=== PATIENT | male | born 1945 | race Caucasian/White ===

== ENCOUNTER 2025-02-22 10:16 | Outpatient (CLI) | payer MEDICARE, SELFPAY ==
[2025-02-22 14:03] LABS: Hematocrit 47.4 % (42.0-52.0); Hemoglobin 15.5 g/dL (14.0-18.0); Immature Granulocyte Percent A 0.2 % (0-0.5); Immature Platelet Fraction Pct 4.2 % (0.9-11.2); Lymphocytes Absolute Auto 2.02 K/mm3 (0.9-3.2); Mean Corpuscular HGB Conc 32.7 g/dl (32-36); Mean Corpuscular Hemoglobin 30.2 pg (26-34); Mean Corpuscular Volume 92.2 fl (80-100); Nucleated Red Blood Cells Absolute Auto 0.000 K/mm3 (0.0-0.012); Nucleated Red Blood Cells Perc 0.0 % (0.0-0.2); Platelet Count Result 135 k/mm3 (150-375); Red Blood Count 5.14 M/mm3 (4.6-6.20); White Blood Count 5.7 K/mm3 (4.5-10.0)
[2025-02-22 14:24] LABS: Free T3 3.31 pg/mL (2.34-5.61); Free T4 Free Thyroxine 1.15 ng/dL (0.78-2.19)
[2025-02-22 14:32] LABS: Syphilis IgG/IgM Antibody Non-Reactive (Nonreactive)
[2025-02-22 15:53] LABS: Alanine Aminotransferase 24 U/L (6-50); Albumin Level 4.1 g/dL (3.5-5.1); Alkaline Phosphatase 65 U/L (38-126); Anion Gap 8 mmol/L (4-12); Aspartate Amino Transferase 45 U/L (17-59); Bilirubin,Total 1.2 mg/dL (0.2-1.3); Blood Urea Nitrogen 13 mg/dL (9-20); Calcium 8.9 mg/dL (8.4-10.2); Carbon Dioxide 24 mmol/L (22-30); Chloride 107 mmol/L (98-107); Cholesterol 125 mg/dL (0-200); Estimated Glomerular Filt Rate > 60; Glucose 82 mg/dL (65-110); HDL Direct 33 mg/dL; Potassium 3.7 mmol/L (3.4-5.0); Sodium 139 mmol/L (137-145); Total Protein 6.4 g/dL (6.3-8.2); Triglycerides 142 mg/dL (<150)
[2025-02-22 16:26] LABS: Thyroid Stimulating Hormone 2.390 uIU/mL (0.465-4.680)
[2025-02-22 17:02] LABS: Vitamin B12 427.0 pg/mL (239-931)
--- OUTSIDE RECORDS SUMMARY | 2025-02-23 10:05 | XMS_ITS | Encounter Summary ---
Author Organization [facility] Address [address] [place] [address] Care Team Providers Care Mold Presser Name Role Phone Russell Le MD Primary Care Provider Encounter Details Date Type Department Care Team (Late st Contact Info) Description 05/27/2013 Ancillary Orders [facility] CT Scan [address] 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
--- OUTSIDE RECORDS SUMMARY | 2025-02-23 10:05 | XMS_ITS | Clinical Summary ---
Author Organization [facility] Address [address] [place] [address] Care Team Providers Care Proofing Machine Operator Name Role Phone Russell Le MD Primary Care Provider [phone] Allergies No known active allergies Medications pravastatin (PRAVACHOL) 40 mg tablet Take 1 tablet by mouth once daily 90 Tablet 3 0 Active lisinopriL (PRINIVIL) 10 mg tablet Take 1 tablet by mouth once daily 90 Tablet 3 0 Active donepeziL (ARICEPT) 10 mg tablet Take 2 Tablets (20 mg) by mouth daily at bedtime. 60 Tablet 11 0 Active Lumigan 0.01 % solution INSTILL 1 DROP INTO EACH EYE ONCE DAILY AT BEDTIME 5 mL 0 Active timoloL maleate (TIMOPTIC) 0.5% solution Administer 1 Drop in both eyes daily in the morning. 10 mL 3 1 Active Active Problems Patient Care Coordination No te Formatting of this note migh t be different from the original. Protocol: [id number], NCT# 39134565. 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 Contact Dr. Clementine Eric at [phone]. Completed induction therapy Bendamustine + Rituximab then 24 months of Rituximab on 04/25/2014. 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 05/17/2018 Thoracic aortic aneurysm without rupture 017 Sensation of pressure, behind eye 11/18/2016 Cognitive change 07/17/2016 Hyperlipemia 08/21/2014 Essential hypertension 05/04/2014 Follicular lymphoma 12/26/2011 Splenomegaly 11/28/2011 Glaucoma suspect 04/03/2009 Resolved Problems Problem Noted Date Diagnosed Date Resolved Date Acquired mechanical ptosis of both eyelids 10/25/2018 01/06/2019 Visual field defects 10/25/2018 019 Anemia, chronic disease 08/18/201705/21 History of lymphoma 12/26/2016 06/08/19 19 Mood disorder 11/18/2016 12/26/2016 CKD (chronic kidney disease) stage 3, GFR 30-59 ml/min 02/11/2016 05/10/2019 Iron deficiency anemia, unspecified 07/06/2012 06/08/2018 SOB (shortness of breath) 06/17/2012 Examination of participant in clinical trial 2 05/04/2014 Immunizations Immunization Administration Dates Next Due (INFANRIX)(6 WKS-6 YRS) DIPT HERIA, TETANUS TOXOIDS, AND ACCELLULAR PERTUSSIS VACCINE (DTAP), 0.5 ML IM 12/29/2007 (PREVNAR 13)(6 WKS UP) PNEUM OCOCCAL CONJUGATE (PCV13) 0.5 ML, IM 08/06/2015 INFLUENZA VACCINE HIGH DOSE QUADRIVALENT 65 YR UP PF IM 01/26/2020 Influenza Seasonal Unspecifi ed Formulation IM 01/26/2018,12/19/2013 Influenza Vaccine High Dose 65+ Yrs IM 1 04/26/2018,01/26/2018,03/26/2017,03/08 PNEUMOVAX (PPSV23) pneumococ anjana polysaccharide 23-valent Vaccine 04/20/2011 Family History Medical History Relation Name Comments Healthy Daughter COPD Father Glaucoma Maternal Grandmother Colon Cancer Mother Healthy Son Relation Name Status Comments Daughter Alive Father Maternal Grandmother Mother Son Alive Social History Tobacco Use Types Packs/Day Years Used Date Smoking Tobacco: Never Smokeless Tobacco: Never Tobacco Cessation:Counseling Given: Yes Alcohol Use Standard Drinks/Week Comments Yes 1 (1 standard drink = 0.6 oz pur e alcohol) ''seldom'' Sex and Gender Information Value Date Recorded Sex Assigned at Not on file 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 Gender Identity Not on file Sexual Orientation Not on file Occupation Industry Job Start Date Job End Date Not on file Not on file Not on file Not on file Last Filed Vital Signs Vital Sign Reading Time Taken Comments Blood Pressure 124/68 09/19/2020 1:41 PM CDT Pulse 61 09/19/2020 1:41 PM CDT Temperature 36.2 C (97.2 F) 06/26/2020 12:48 PM RN MATERNAL CHILD Respiratory Rate 20 09/19/2020 1:41 PM CDT Oxygen Saturation 97% 09/19/2020 1:41 PM CDT Inhaled Oxygen Concentration - - Weight 90.7 kg (200 lb) 09/19/2020 1:41 PM CDT Height 172.7 cm (5' 8) 09/19/2020 1:41 PM CDT Body Mass Index 30.41 09/19/2020 1:41 PM CDT Plan of Treatment Health Maintenance Due Date Last Done Comments ZOSTER VACCINE (1 of 2) 07/09/1964 DTAP/TDAP/TD VACCINES (2 - Tdap) 12/28/2017 12/29/19 08 RSV VACCINE (60+ or ) (1 - 1-dose 75+ series) 07/09/2019 COLORECTAL SCREENING 09/30/2019 09/29/2014, 09/29/2014, 11/08/2007 [place] Preventative Visit/Annual Wellness Visit 04/20/2024 01/26/2020, 01/04/2019, 12/31/2017, Additional history exists INFLUENZA VACCINE (#1) 2024 0, 02/24/2019, 01/26/2018, Additional history exists PNEUMOCOCCAL VACCINE 50+ YEARS Completed 08/06/2015 , 04/20/2011 Medical Devices Implanted Type Area Game Protector Device Identifier Shelf Expiration Date Model / Serial / Lot Port Pwrprt Ti Chrnflx Cath 8fr [id number] - Sna Implanted:Qty: 1 on 02/24/2012 at [facility] Port Left: Chest CR BARD- ACCESS SYS 09/23/2013 [id number] / NA / [id number] Procedures Procedure Name Priority Date/Time Associated Diagnosis Comments ENDOSCOPY, COLON, SCREENING Routine 09/29/2014 9:55 AM CDT Special screening for malignant neoplasms, colon from Last 3 Months or Most Recently Relevant to Health Maintenance Results * ENDOSCOPY, COLON, MEDICARE SCREENING (11/08/2007) Francisco Brito MD GI PROCEDURE ORDERABLES Final Re sult from Last 3 Months or Most Recently Relevant to Health Maintenance Insurance [facility] [id number] [facility] Advance Directives For more information, please contact: [phone] Documents on File Type Date Recorded Patient Senior Data Warehouse Architect Expl anation Advance Directive POA 08/21/2014 10:17 AM A dvance Directive POA Advance Directive Living Will 08/21/2014 10:16 AM Advance Directive Living Will * Full Code (Latest Code Status on File) Date Activated Date Inactivated Comments 10/25/2018 10:40 AM 10/25/2018 4:53 PM * Full Code Date Activated Date Inactivated Comments 09/29/2014 9:55 AM 09/29/2014 1:41 PM * Full Code Date Activated Date Inactivated Comments 02/24/2012 11:56 AM 02/25/2012 2:02 AM * Full Code Date Activated Date Inactivated Comments 02/24/2012 11:02 AM 02/24/2012 11:56 AM * Full Code Date Activated Date Inactivated Comments 12/18/2011 2:31 PM 12/18/2011 7:09 PM Care Teams Proofing Machine Operator Relationship Specialty Start Date End Date Russell Le MD PCP - General Internal Medicine 12/05/14
--- OUTSIDE RECORDS SUMMARY | 2025-02-23 10:05 | XMS_ITS | Encounter Summary ---
Author Organization [facility] Address [address] [place] [address] Care Team Providers Care Enterprise Application Developer Name Role Phone Russell Le MD Primary Care Provider [phone] Reason for Referral * Outpatient Services (Routine) - Closed Specialty Diagnoses / Procedures Referred By Anup guzman Referred To Contact Diagnoses Calculus of kidney Lumbago Procedures CT ABDOMEN PELVIS W CONTRAST Chelsea Falcon MD NO ADDRESS ON FILE [facility] Pre-Registration [place] CALL TO MAKE APPOINTMENT ONLY [address] [place] [address] Phone: tel: fax: Referral ID Status Reason Start Date Expiration Date V isits Requested Visits Authorized [id number] Closed [facility] TO SCHEDULE (SGF) 11/03/2011 11/02/2012 1 1 Encounter Details Date Type Department Care Team (Latest Contact Info) Description 11/03/2011 Ancillary Orders [facility] Pre-Registration [place] CALL TO MAKE APPOINTMENT ONLY [address] [place] [address] Chelsea Falcon MD NO ADDRESS ON FILE Calculus of kidney; Lumbago Social History Tobacco Use Types Packs/Day Years Used Date Smoking Tobacco: Never Alcohol Use Standard Drinks/Week Comments Yes 0 (1 standard drink = 0.6 oz pur e alcohol) Sex and Gender Information Value Date Recorded Sex Assigned at Not on file 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 Adenopathy and splenomegaly. The appearance is concerning for lymphoma. Please correlate clinically. 2. No bowel thickening or inflammatory changes. Nonobstructive right nephrolithiasis and renal cortical cysts are noted. [email or web address] 1102 AM - uploaded from [email or web address]- [email or web address] 11/05/2011 1:21 PM CDT Exam: CT ABDOMEN PELVIS W CONTRAST Date/Time of Exam: Nov 05, 2011 11:00:00 AM Reason For Exam: CALCULUS OF KIDNEY. Technique: CT of the abdomen and pelvis was performed following the administration of intravenous contrast. Contrast: 100 mL Optiray-240 contrast. The lung bases are clear. There is no effusion. The liver is homogeneous in density and there is no duct dilatation. There is splenomegaly. The spleen measures 17.1 x 6.6 x 13.6 cm in size. The adrenal glands are normal in size. There is adenopathy. Multiple enlarged lymph nodes include the lymph node in the superior shon hepatis best seen on image 22 measuring 2.0 x 1.3 cm in size. Numerous 1 cm lymph nodes are noted in the mesentery but there is one enlarged lymph node or conglomeration of lymph nodes on image 44 measuring 4.1 x 1.9 cm in size. Retroperitoneal adenopathy is also identified with the largest lymph node on the left image 40 measuring 2.1 x 2.4 cm in size. No pathologically enlarged lymph nodes are identified in the pelvis or groin. Small fat filled inguinal hernias are noted. There is moderate prostatomegaly. The bladder is unremarkable. There is abundant colonic stool. No bowel thickening or inflammatory changes are identified and the appendix is unremarkable. The abdominal aorta is normal in size. Nonobstructive nephrolithiasis is noted. Fluid density renal cysts are noted on the right. The vertebral body heights are maintained and there is no fracture or subluxation. No bony destructive lesion is identified. Procedure Note Argenis Bonner MD - 11/05/2011 Exam: CT ABDOMEN PELVIS W CONTRAST Date/Time of Exam: Nov 05, 2011 11:00:00 AM Reason For Exam: CALCULUS OF KIDNEY. Technique: CT of the abdomen and pelvis was performed following the administration of intravenous contrast. Contrast: 100 mL Optiray-240 contrast. The lung bases are clear. There is no effusion. The liver is homogeneous in density and there is no duct dilatation. There is splenomegaly. The spleen measures 17.1 x 6.6 x 13.6 cm in size. The adrenal glands are normal in size. There is adenopathy. Multiple enlarged lymph nodes include the lymph node in the superior shon hepatis best seen on image 22 measuring 2.0 x 1.3 cm in size. Numerous 1 cm lymph nodes are noted in the mesentery but there is one enlarged lymph node or conglomeration of lymph nodes on image 44 measuring 4.1 x 1.9 cm in size. Retroperitoneal adenopathy is also identified with the largest lymph node on the left image 40 measuring 2.1 x 2.4 cm in size. No pathologically enlarged lymph nodes are identified in the pelvis or groin. Small fat filled inguinal hernias are noted. There is moderate prostatomegaly. The bladder is unremarkable. There is abundant colonic stool. No bowel thickening or inflammatory changes are identified and the appendix is unremarkable. The abdominal aorta is normal in size. Nonobstructive nephrolithiasis is noted. Fluid density renal cysts are noted on the right. The vertebral body heights are maintained and there is no fracture or subluxation. No bony destructive lesion is identified. IMPRESSION Impression: 1. Adenopathy and splenomegaly. The appearance is concerning for lymphoma. Please correlate clinically. 2. No bowel thickening or inflammatory changes. Nonobstructive right nephrolithiasis and renal cortical cysts are noted. [email or web address] 1102 AM - uploaded from [email or web address]- us Chelsea Falcon MD CT ORDERABLES Final Result documented in this encounter Visit Diagnoses Diagnosis Calculus of kidney Lumbago Calculus of kidney Lumbago documented in this encounter Care Teams Enterprise Application Developer Relationship Specialty Start Date End Date Russell Le MD PCP - General Internal Medicine 12/05/14 documented as of this encounter
--- OUTSIDE RECORDS SUMMARY | 2025-02-23 10:05 | XMS_ITS | Encounter Summary ---
Author Organization [facility] Address [address] [place] [address] Care Team Providers Care Derrick Helper Name Role Phone Russell Le MD Primary Care Provider [phone] Encounter Details Date Type Department Care Team (Late st Contact Info) Description 04/08/2015 Nurse Triage Report [id number] ABSTRACTION Gayle Benton, RN Social History Tobacco Use Types Packs/Day Years Used Date Smoking Tobacco: Never Smokeless Tobacco: Never Alcohol Use Standard Drinks/Week Comments Yes 0 (1 standard drink = 0.6 oz pur e alcohol) ''seldom'' Sex and Gender Information Value Date Recorded Sex Assigned at Not on file 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 Report feedback to Dr. Russell Le. going back to be with patient Associated Symptoms: tired pressure behind his eyes-white clear phlegm Onset: 5 days ago Location: [place] Pain Assessment: 1 - 10 with 10 being the most severe pain none Treatment so far for current presenting problem: mucinex, delsym History (Clinical Problems): cough(healthy) History (Oncology/Hematology Diagnosis): lymphoma-stopped less than a year ago Medications: reviewed in EPIC with patient Medication reactions: NKDA <<<<<<<< TRIAGE NOTE >>>>>>>> <<<<<<<< TRIAGE/OUTCOME >>>>>>>> Guideline Title: Cough - Adult Recommended Disposition: See Provider within 24 hours Original Inclination: Call Provider/See in 24 Intended Action: Call or See Provider within 24 hrs Physician Contacted: No New productive cough with thick colored sputum (other than clear or white sputum; not postnasal drainage) ? YES L POLISHER documented in this encounter Plan of Treatment Not on file documented as of this encounter Visit Diagnoses Not on filedocumented in this encounter Additional Health Concerns Assessment Noted Time PHQ-9 Depression Total Score: 1 05/04/19 15 3:00 PM BEVEL POLISHER documented as of this encounter Care Teams Derrick Helper Relationship Specialty Start Date End Date Russell Le MD PCP - General Internal Medicine 12/05/14 documented as of this encounter
--- OUTSIDE RECORDS SUMMARY | 2025-02-23 10:05 | XMS_ITS | Encounter Summary ---
Author Organization [facility] Address [address] [place] [address] Care Team Providers Care Pump House Technician Name Role Phone Russell Le MD Primary Care Provider Encounter Details Date Type Department Care Team (Late st Contact Info) Description 11/05/2007 Outpatient Historical [facility] [address] [place] [address] Francisco Brito MD NO ADDRESS ON FILE Social History Tobacco Use Types Packs/Day Years Used Date Smoking Tobacco: Never Assessed Sex and Gender Information Value Date Recorded Sex Assigned at Not on file Legal Sex 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
--- OUTSIDE RECORDS SUMMARY | 2025-02-23 10:05 | XMS_ITS | Encounter Summary ---
Author Organization [facility] Address [address] [place] [address] Care Team Providers Care Acrylic Fabricator Name Role Phone Russell Le MD Primary Care Provider Reason for Visit * Reason Comments Medication Refill Encounter Details Date Type Department Care Team (Late st Contact Info) Description 11/15/2015 Refill [facility] [address] [place] [address] Chester Correa MD [address] [place] [address] Social History Tobacco Use Types Packs/Day Years Used Date Smoking Tobacco: Never Smokeless Tobacco: Never Alcohol Use Standard Drinks/Week Comments Yes 0 (1 standard drink = 0.6 oz pur e alcohol) ''seldom'' Sex and Gender Information Value Date Recorded Sex Assigned at Not on file 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
--- OUTSIDE RECORDS SUMMARY | 2025-02-23 10:05 | XMS_ITS ---
Author Organization [facility] Address [address] [place] [address] Care Team Providers Care Plumber Helper Name Role Phone Russell Le MD Primary Care Provider [phone] Active Problems Patient Care Coordination No te Formatting of this note migh t be different from the original. Protocol: [id number], NCT# [id number]. 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 Contact Dr. Clementine Eric at [phone]. Completed induction therapy Bendamustine + Rituximab then 24 months of Rituximab on 04/25/2014. 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 Past Treatment and Therapy Plans ONCOLOGY TREATMENT Plan Name Start Date Discontinue Date Treatment Medications Discontinue Reason Plan Provider Cycles OP ONC [facility] [id number]_RITU XIMAB 07/20/2012 05/23/2014 INVESTIGATIONAL - riTUXimab in sodium chloride 0.9% IVPB Therapy Complete Rafael Cassidy MD 12 of 12 cycles started Lifetime Dose Tracking * Chemical Lifetime Dose Automatic Entry Manual Entr y Effective Dose 118.3 mSv 118.3 mSv 0 mSv Total DLP 7,053 DLP 7,053 DLP 0 DLP CTDIvol Max 100.5 mGy 100.5 mGy 0 mGy CTDIvol Min 92.4 mGy 92.4 mGy 0 mGy Resolved Problems Problem Noted Date Diagnosed Date [...]
== END 2025-02-22 10:17 | disposition home or self-care (01) ==
PROVIDERS: PCP Internal Medicine; Visit Provider Internal Medicine
DX: E78.49 Other hyperlipidemia (principal); I10 Essential (primary) hypertension; Z86.73 Personal history of transient ischemic attack (TIA), and cerebral infarction without residual deficits; G30.9 Alzheimer's disease, unspecified; F02.B11 Dementia in other diseases classified elsewhere, moderate, with agitation
CPT/HCPCS: 36415; 80053; 80061; 82607; 82746; 84439; 84443; 84481; 85025; 85055; 85652; 86593

== ENCOUNTER 2025-02-28 10:15 | Emergency (ER) | payer MEDICARE, SELFPAY ==
[2025-02-28 10:30] VITALS: BP 120/90; PULSE 97; RESP 18; TEMP 36.8; O2SAT 97
--- NOTE | 2025-02-28 10:38 | ED.URI ---
HPI - URI/Sore Throat General Chief Complaint: Upper Respiratory Infection Stated Complaint: COUGH/CONGESTION Time Seen by Provider: 02/28/25 10:38 Source: patient and RN notes reviewed Mode of arrival: ambulatory Limitations: no limitations History of Present Illness HPI Narrative: 79-year-old male with history of dementia presents with concern for cough and congestion that started yesterday. His reports he has a history of bronchitis and she is concern for that. Denies general malaise, fever. Denies sore throat. She reports he seems a little more tired than usual. MD elicited complaint: cough Related Data Home Medications ?Medication ?Instructions ?Recorded ?Confirmed ?Last Taken ?Type acetaminophen 325 mg tablet 325 mg PO Q6H PRN 11/29/24 01/31/25 Unknown History (Tylenol) aspirin 81 mg tablet 81 mg PO DAILY 11/29/24 01/31/25 Unknown History atorvastatin 40 mg tablet (Lipitor) 40 mg PO DAILY 11/29/24 01/31/25 Unknown History donepezil 10 mg tablet 10 mg PO QHS 11/29/24 01/31/25 Unknown History hydroxyzine HCl 25 mg tablet 25 mg PO TID PRN 11/29/24 01/31/25 Unknown History latanoprost 0.005 % eye drops 1 drp EACH EYE DAILY 11/29/24 01/31/25 Unknown History lisinopril 20 mg tablet 20 mg PO DAILY 11/29/24 01/31/25 Unknown History loratadine 10 mg tablet (Claritin) 10 mg PO DAILY 11/29/24 01/31/25 Unknown History memantine 10 mg tablet (Namenda) 10 mg PO BID 11/29/24 01/31/25 Unknown History Allergies Allergy/AdvReac Type Severity Reaction Status Date / Time No Known Allergies Allergy Verified 02/28/25 10:28 Review of Systems Review of Systems: CONSTITUTIONAL: Denies malaise, chills, sweats, or fever. EYES: Denies visual changes, redness, or discharge. ENT: Reports rhinorrhea, congestion. Denies sinus pain, otalgia and sore throat. CARDIOVASCULAR: Denies chest pain, palpitations, or edema. RESPIRATORY: Reports cough. Denies dyspnea. GASTROINTESTINAL: Denies abdominal pain, nausea, vomiting, diarrhea SKIN: Denies rash or itching. MUSCULOSKELETAL: Denies myalgia. NEUROLOGIC: Denies headache. 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 Stroke TIA - 05/2023 Family History Family History Mother Dementia Social History Social History Second hand tobacco smoke exposure: Yes (when he was younger) Alcohol intake: current Alcohol use details: Rarely Substance use: never Do You Feel Safe in your Home?: Yes Lack of Transportation: No Lack of Food: Never True Current Housing: I Have Housing Concerned About Future Housing: No Difficulty Paying Gas/Electric Bills: No Difficulty Paying for Meds: No Currently Unemployed: No Education: High School Diploma/GED Difficulty w/ Childcare or Family Care: No Living arrangements: with family Occupation/Education: retired Gender identity (if verbalized by the patient): Male Agree to blood products: Yes Comments At time of signature, agree with nursing past medical, surgical, social and family history. There is no relevant family history pertinent to the presenting complaint Exam Narrative: GENERAL: Well-appearing, well-nourished, and in no acute distress. HEAD: Normocephalic EYES: PERRLA, conjunctivae clear ENT: Nares clear. Mucous membranes moist. TM pearly harper with sharp light reflex bilaterally; no tragal tenderness. Oropharynx not erythematous without lesions. Tonsils not enlarged and without exudate, no drooling, no hoarseness, no trismus, uvula midline. NECK: Supple. No lymphadenopathy CHEST: Clear to auscultation, breath sounds equal. No wheezing, rhonchi, rales, or stridor. No respiratory distress, speaks in full sentences. HEART: Regular rate and rhythm. No murmur heard. SKIN: Warm, dry, no rash. NEURO: Alert and oriented x3. PSYCH: Normal mood and affect Course Course Emergency Course: Patient is aware of diagnosis, understands and agrees to treatment plan. Anticipatory guidance given. Patient agrees to follow-up as directed and is aware of reasons to seek care at the emergency department. Portions of this record may have been created with voice recognition software Level of Care: Express Care Visit Vital Signs Vital signs: Vital Signs Temperature 98.3 F 02/28/25 10:30 Pulse Rate 97 02/28/25 10:30 Respiratory Rate 18 02/28/25 10:30 Blood Pressure 120/90 02/28/25 10:30 Pulse Oximetry 97 02/28/25 10:30 Oxygen Delivery Room Air 02/28/25 10:30 Temperature 98.3 F 02/28/25 10:30 Pulse Rate 97 02/28/25 10:30 Respiratory Rate 18 02/28/25 10:30 Blood Pressure 120/90 02/28/25 10:30 Pulse Oximetry 97 02/28/25 10:30 Oxygen Delivery Room Air 02/28/25 10:30 Reviewed. MDM - URI/Sore Throat MDM Narrative Medical decision making narrative: Differential diagnosis considered: Rutledge virus, strep pharyngitis, allergic rhinitis, upper respiratory tract infection, sinusitis, rhinosinusitis, nasopharyngitis. viral pharyngitis, otitis media, otitis externa, pneumonia, bronchitis, viral cough syndrome, viral syndrome, and influenza. Exam findings show no acute concerns or changes; patient is non-toxic appearing and is in no distress. Patient is appropriate for outpatient treatment and follow-up. Lab Data Attestation: I reviewed the patient's lab results. Critical Care Time Critical Care Time Critical Care Time: No Discharge Plan Discharge Clinical Impression: Upper respiratory infection Patient Disposition: Home Condition: Stable Instructions: Acute Cough (ED) Additional Instructions: Viral illness may last between 7-21 days; antibiotics do not cure viral illness and are NOT recommended at this time. Cough syrup may cause drowsiness; avoid driving or take it at night time. Also, recommend symptomatic treatment includes: rest, fluids, and increase humidity of the air at home. Recommend Acetaminophen as directed on the bottle to reduce fever, pain, headache. Avoid smoking/second-hand smoke. Please schedule a follow-up visit with your personal physician for further evaluation and treatment within 3-5days. If your symptoms persist, change or worsen significantly before you can contact your personal physician then please, without delay, go to the emergency department for further evaluation. Patient Language: Hebrew Prescriptions: New methylprednisolone [Medrol (Cedrick)] 4 mg tablets,dose pack See Rx Instructions .ROUTE .COMPLEX Qty: 21 0RF Rx Instructions: orally per package directions promethazine-DM 6.25-15 mg/5 mL syrup 5 ml PO Q4-6H PRN (Reason: cough) Qty: 120 0RF No Action acetaminophen [Tylenol] 325 mg tablet 325 mg PO Q6H PRN aspirin 81 mg tablet 81 mg PO DAILY atorvastatin [Lipitor] 40 mg tablet 40 mg PO DAILY donepezil 10 mg tablet 10 mg PO QHS latanoprost 0.005 % drops 1 drp EACH EYE DAILY lisinopril 20 mg tablet 20 mg PO DAILY loratadine [Claritin] 10 mg tablet 10 mg PO DAILY memantine [Namenda] 10 mg tablet 10 mg PO BID hydroxyzine HCl 25 mg tablet 25 mg PO TID PRN diazepam [Valium] 5 mg tablet 5 mg PO ONCE Qty: 1 0RF Rx Instructions: take 1 hour before mri. Follow-up/Referrals: Christiano Aranda DO [Primary Care Provider, Internal Medicine] Time of Disposition: 10:48
== END 2025-02-28 11:05 | disposition home or self-care (01) ==
PROVIDERS: Emergency Provider Nurse Practitioner; PCP Internal Medicine
DX: J06.9 Acute upper respiratory infection, unspecified (principal); F03.90 Unspecified dementia, unspecified severity, without behavioral disturbance, psychotic disturbance, mood disturbance, and anxiety; I10 Essential (primary) hypertension; E78.5 Hyperlipidemia, unspecified; Z86.73 Personal history of transient ischemic attack (TIA), and cerebral infarction without residual deficits; Z85.72 Personal history of non-Hodgkin lymphomas; Z79.82 Long term (current) use of aspirin
CPT/HCPCS: 99213; G0463

== ENCOUNTER 2025-03-22 12:35 | Outpatient (CLI) | payer MEDICARE, SELFPAY ==
--- NOTE | ~2025-03-22 | US_ITS ---
Clinical History: Z86.73 - Personal history of transient ischemic attack (T... Examination: US carotid duplex BI Comparison: None Technique: Grayscale, color, duplex/spectral Doppler sonography carotid and vertebral arteries. Distal CCA and Peak ICA systolic velocities provided. Society of Radiologists in Ultrasound (SRU) consensus criteria utilized, indirectly assessing stenosis by velocities. Findings: Mild plaque Right side: CCA - 70 cm/sec. ICA - 74 cm/sec. ICA/CCA - 1.0 Left Side: CCA - 76 cm/sec. ICA - 102 cm/sec. ICA/CCA - 1.3 Normal antegrade flow measured bilateral vertebral arteries. IMPRESSION: 1. No hemodynamically significant ICA stenosis (i.e., if any stenosis, less than 50%). 2. Normal bilateral antegrade vertebral artery flow. Stenosis measured by Society of Radiologists in Ultrasound (SRU) criteria. Reviewed, dictated and finalized at location R. OVISUAL TECHNICIAN IMPRESSION: 1. No hemodynamically significant ICA stenosis (i.e., if any stenosis, less th an 50%). 2. Normal bilateral antegrade vertebral artery flow. Stenosis measured by Society of Radiologists in Ultrasound (SRU) criteria.
--- OUTSIDE RECORDS SUMMARY | 2025-03-22 13:37 | XMS_ITS | Encounter Summary ---
Author Organization [facility] Address [address] [address] Care Team Providers Care Culinary Worker Name Role Phone Russell Le MD Primary Care Provider Ryan terry Reason for Referral * Outpatient Services (Routine) - Closed Specialty Diagnoses / Procedures Referred By Anup guzman Referred To Contact Diagnoses Calculus of kidney Lumbago Procedures CT ABDOMEN PELVIS W CONTRAST Chelsea Falcon MD NO ADDRESS ON FILE [facility] [place] CALL TO MAKE APPOINTMENT ONLY [address] [place] [facility] [place] [address] Phone: tel: fax: Referral ID Status Reason Start Date Expiration Date V isits Requested Visits Authorized [id number] Closed [facility]ULE ([facility]) 11/03/2011 11/02/2012 1 1 Encounter Details Date Type Department Care Team (Latest Contact Info) Description 11/03/2011 Ancillary Orders [facility] [place] CALL TO MAKE APPOINTMENT ONLY [address] [place] [facility] [place] [address] Chelsea Falcon MD NO ADDRESS ON FILE Calculus of kidney; Lumbago Social History Tobacco Use Types Packs/Day Years Used Date Smoking Tobacco: Never Alcohol Use Standard Drinks/Week Comments Yes 0 (1 standard drink = 0.6 oz pur e alcohol) Sex and Gender Information Value Date Recorded Sex Assigned at Not on file 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 [email or web address] 1102 AM - uploaded from [email or web address]- Contactual 11/05/2011 1:21 PM CDT Exam: CT ABDOMEN [...] noted. [email or web address] 1102 AM - uploaded from [email or web address]- us Chelsea Falcon MD CT ORDERABLES Final Result documented in this encounter Visit Diagnoses Diagnosis Calculus of kidney Lumbago Calculus of kidney Lumbago documented in this encounter Care Teams Culinary Worker Relationship Specialty Start Date End Date Russell Le MD PCP - General Internal Medicine 12/05/14 documented as of this encounter
--- OUTSIDE RECORDS SUMMARY | 2025-03-22 13:37 | XMS_ITS | Encounter Summary ---
Author Organization [facility] Address [address] [place] [address] Care Team Providers Care Varnishing Unit Tool Setter Name Role Phone Russell Le MD Primary Care Provider Ryan terry Reason for Visit * Reason Comments Medication Refill Encounter Details Date Type Department Care Team (Late st Contact Info) Description 11/15/2015 Refill [facility] [address] [place] [address] Chester Correa MD [address] [place] [address] Social History Tobacco Use Types Packs/Day Years Used Date Smoking Tobacco: Never Smokeless Tobacco: Never Alcohol Use Standard Drinks/Week Comments Yes 0 (1 standard drink = 0.6 oz pur e alcohol) ''seldom'' Sex and Gender Information Value Date Recorded Sex Assigned at Not on file 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
--- OUTSIDE RECORDS SUMMARY | 2025-03-22 13:37 | XMS_ITS | Encounter Summary ---
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 YES ATTE OPERATOR documented in this encounter Plan of Treatment Not on file documented as of this encounter Visit Diagnoses Not on filedocumented in this encounter Additional Health Concerns Assessment Noted Time PHQ-9 Depression Total Score: 1 05/04/19 15 3:00 PM BARRATTE OPERATOR documented as of this encounter Care Teams County Coroner Relationship Specialty Start Date End Date Russell Le MD PCP - General Internal Medicine 12/05/14 documented as of this encounter
--- OUTSIDE RECORDS SUMMARY | 2025-03-22 13:37 | XMS_ITS | Clinical Summary ---
Author Organization [facility] Address [address] [place] [address] Care Team Providers Care Cellophane Bath Mixer Name Role Phone Russell Le MD Primary Care Provider Unavai lable Allergies No known active allergies Medications pravastatin [...] t be different from the original. Protocol: [id number], NCT# [id number]. 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 Contact Dr. Clementine Eric at [phone]. Completed induction therapy Bendamustine + Rituximab then [...] on file Legal Sex Male 6:59 AM BUSINESS SERVICES SALES AGENT Gender Identity Not on file Sexual Orientation Not on file Occupation Industry Job Start Date Job End Date Not on file Not on file Not on file Not on file Last Filed Vital Signs Vital Sign Reading Time Taken Comments Blood Pressure 124/68 09/19/2020 1:41 PM CDT Pulse 61 09/19/2020 1:41 PM CDT Temperature 36.2 C (97.2 F) 06/26/2020 12:48 PM BUSINESS SERVICES SALES AGENT Respiratory Rate 20 09/19/2020 1:41 PM CDT [...] SCREENING 09/30/2019 09/29/2014, 09/29/2014, 11/08/2007 [place] Preventative Visit/Annual Wellness Visit 04/20/2024 01/26/2020, 01/04/2019, 12/31/2017, Additional history exists INFLUENZA VACCINE (#1) 2024 0, 02/24/2019, 01/26/2018, Additional history exists PNEUMOCOCCAL VACCINE 50+ YEARS Completed 08/06/2015 , 04/20/2011 Medical Devices Implanted Type Area Learning Disabilities Teacher Device Identifier Shelf Expiration Date Model / Serial / Lot Port Pwrprt Ti Chrnflx Cath 8fr [id number] - Sna Implanted:Qty: 1 on 02/24/2012 at [facility] Port Left: Chest CR BARD- ACCESS SYS 09/23/2013 [id number] / NA / [id number] Procedures Procedure Name Priority Date/Time Associated Diagnosis Comments ENDOSCOPY, COLON, SCREENING Routine 09/29/2014 9:55 AM CDT Special screening for malignant neoplasms, colon from Last 3 Months or Most Recently Relevant to Health Maintenance Results * ENDOSCOPY, COLON, MEDICARE SCREENING (11/08/2007) Francisco Brito MD GI PROCEDURE ORDERABLES Final Re sult from Last 3 Months or Most Recently Relevant to Health Maintenance Insurance AENA [id number] [facility] Advance Directives For more information, please contact: [phone] Documents on File Type Date Recorded Patient Carbonation Tester Expl anation Advance Directive POA 08/21/2014 10:17 [...] 2:31 PM 12/18/2011 7:09 PM Care Teams Cellophane Bath Mixer Relationship Specialty Start Date End Date Russell Le MD PCP - General Internal Medicine 12/05/14
--- OUTSIDE RECORDS SUMMARY | 2025-03-22 13:37 | XMS_ITS ---
Author Organization [facility] Address [address] [place] [address] Care Team Providers Care Smelter Charger Name Role Phone Russell Le MD Primary Care Provider Ryan terry Active Problems Patient Care Coordination No te Formatting of this note migh t be different from the original. Protocol: [id number], NCT# [id number]. 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 Contact Dr. Clementine Eric at [phone]. Completed induction therapy Bendamustine + Rituximab then [...] Discontinue Reason Plan Provider Cycles OP ONC [facility] [id number] MAINTENA NCE_RITU XIMAB 07/20/2012 05/23/2014 INVESTIGATIONAL - [...]
--- OUTSIDE RECORDS SUMMARY | 2025-03-22 13:37 | XMS_ITS | Encounter Summary ---
Author Organization [facility] Address [address] [place] [address] Care Team Providers Care Yield Clerk Name Role Phone Russell Le MD Primary Care Provider Ryan terry Encounter Details Date Type Department Care Team (Late st Contact Info) Description 11/05/2007 Outpatient Historical [facility] [address] [place] [address] Francisco Brito MD NO ADDRESS ON FILE Social History Tobacco Use Types Packs/Day Years Used Date Smoking Tobacco: Never Assessed Sex and Gender Information Value Date Recorded Sex Assigned at Not on file 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
--- OUTSIDE RECORDS SUMMARY | 2025-03-22 13:37 | XMS_ITS | Encounter Summary ---
Author Organization [facility] Address [address] [place] [address] Care Team Providers Care Forest Fire Officer Name Role Phone Russell Le MD Primary Care Provider Ryan terry Encounter Details Date Type Department Care Team (Late st Contact Info) Description 05/27/2013 Ancillary Orders [facility] CT Scan [address] 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
== END 2025-03-22 12:36 | disposition home or self-care (01) ==
PROVIDERS: PCP Internal Medicine; Visit Provider Internal Medicine
DX: G30.9 Alzheimer's disease, unspecified (principal); Z86.73 Personal history of transient ischemic attack (TIA), and cerebral infarction without residual deficits; F02.B11 Dementia in other diseases classified elsewhere, moderate, with agitation
CPT/HCPCS: 93880